=== PATIENT | female | born 1985 | race Two or more races ===

== ENCOUNTER 2023-08-12 10:06 | Emergency (ER) | payer MEDICAID ==
[~2023-08-12] VITALS: Ht 165.1 cm; Wt 68.2 kg
[2023-08-12] MEDS ORDERED: ACET-2247 PO (10:12)
[2023-08-12] MEDS ORDERED: AMOX1TAB15 PO (10:12)
[2023-08-12] MEDS ORDERED: IBUP-45 PO (10:12)
[2023-08-12 11:00] VITALS: TEMP 98.8
[2023-08-12] MEDS ORDERED: ACETAMINOPHEN 500 MG TABLET PO ONE (11:00)
[2023-08-12 11:53] LABS: COVID AG,FIA SOURCE NASAL SWAB
[2023-08-12 12:17] LABS: RAPID GROUP A STREP NEGATIVE (NEGATIVE)
[2023-08-12 12:23] LABS: INFLUENZA TYPE A NEGATIVE FOR TYPE A (NEGATIVE); INFLUENZA TYPE B NEGATIVE FOR TYPE B (NEGATIVE)
[2023-08-12] MEDS ORDERED: AMOX500C2 PO (12:26)
[2023-08-12 12:31] LABS: SARS-COV2 (COVID) ANTIGEN,FIA Positive (Negative)
[2023-08-12 12:45] VITALS: BP 102/69; PULSE 76; RESP 18
== END 2023-08-12 12:55 | disposition home or self-care (01) ==
LOC: EMS 10:06
DX: U07.1 COVID-19 (principal); H66.91 Otitis media, unspecified, right ear
CPT/HCPCS: 71045; 87430; 87804; 99284